=== PATIENT | female | born 1985 | race Caucasian/White ===

== ENCOUNTER → 2018-02-08 08:40 | Outpatient (CLI) | payer OTHER, SELFPAY ==
[2018-02-08 09:43] LABS: Hematocrit 42.6 % (37-47); Hemoglobin 13.7 g/dl (12.0-15.0); Mean Corp Hgb Conc 32.2 g/gl (32-36); Mean Corpuscular Hgb 29.7 pg (27.0-32.0); Mean Corpuscular Volume 92.4 fL (81-99); Mean Platelet Vol. 10.4 fl (6.2-12.0); Platelet Count 302 K/mm3 (150-450); RBC Distribution Width SD 43.2 fl (35.1-43.9); Red Blood Count 4.61 M/mm3 (4.2-5.4); White Blood Count 6.7 K/mm3 (4.4-11.0)
[2018-02-08 09:47] LABS: Scan Indicated on CBC? Y/N NO
== END ==
PROVIDERS: Visit Provider Obstetrics & Gynecology
DX: K62.5 Hemorrhage of anus and rectum (principal)
CPT/HCPCS: 36415; 82274; 85027

== ENCOUNTER → 2018-05-23 10:11 | Outpatient (CLI) | payer OTHER, SELFPAY ==
[2016-05-16 13:12] VITALS: BMI 26.3
[2018-05-23 12:13] LABS: Absolute Lymphocyte Count 2.05 X10^3/ul (0.83-4.51); Absolute Neutrophil Count 3.2 X10^3/uL (2.0-7.7); Basophil# 0.05 X10^3/uL; Basophil% 0.8 % (0-1); Eosinophil# 0.06 X10^3/uL; Hematocrit 42.1 % (37-47); Hemoglobin 13.6 g/dl (12.0-15.0); Lymphocyte # 2.05 X10^3/ul (4.0); Lymphocyte % 34.8 % (19-41); Mean Corp Hgb Conc 32.3 g/gl (32-36); Mean Corpuscular Hgb 29.6 pg (27.0-32.0); Mean Corpuscular Volume 91.5 fL (81-99); Mean Platelet Vol. 10.2 fl (6.2-12.0); Monocyte# 0.49 X10^3/uL; Monocyte% 8.3 % (0-10); Neutrophil # 3.23 X10^3/uL (2.7-7.7); Neutrophil % 54.9 % (47-70); Platelet Count 326 K/mm3 (150-450); RBC Distribution Width CV 13.2 % (11.6-14.6); RBC Distribution Width SD 43.5 fl (35.1-43.9); White Blood Count 5.9 K/mm3 (4.4-11.0)
[2018-05-23 12:21] LABS: POSITIVE COUNT NO; POSITIVE DIFFERENTIAL NO; POSITIVE MORPHOLOGY NO
[2018-05-23 12:39] LABS: Progesterone Level 15.72 ng/mL (See Comment); Vitamin B12 842 pg/mL (211-911); Vitamin D,25 Hydroxy 34.7 ng/mL (29.95-100.01)
[2018-05-23 14:06] LABS: ALB/GLOB Ratio 1.2 RATIO (0.9-2.4); AST(SGOT) 14 U/L (15-37); Alanine Aminotransfer ALT/SGPT 18 U/L (13-56); Albumin, Serum 4.1 g/dL (3.2-5.0); Alkaline Phosphatase 60 U/L (45-117); Anion Gap 11 (5-15); BUN 10 mg/dL (7-18); BUN/Creat Ratio 13.8 RATIO (10-20); Calcium,Total 8.8 mg/dL (8.5-10.1); Chloride 106 mmol/L (98-107); Creatinine, Serum 0.72 mg/dL (0.55-1.02); EST Glomerular Filtration Rate 99 mL/min (>60); Est Glom Filt Rate - Afr Amer 119 mL/min (>60); Estradiol 117.2 pg/mL; Ferritin 33 ng/mL (8-252); Globulin 3.5 g/dL (2.2-4.2); Glucose 80 mg/dL (74-106); Magnesium 1.9 mg/dL (1.6-2.6); Potassium 3.7 mmol/L (3.5-5.1); Prolactin 6.9 ng/mL; Protein, Total 7.6 g/dL (6.4-8.2); Sodium Level 141 mmol/L (136-145); T4 Free Direct 1.08 ng/dL (0.76-1.46); Thyroid Stim Hormone (TSH) 1.05 uIU/mL (0.358-3.74)
[2018-05-23 16:35] LABS: Bilirubin, Direct 0.37 mg/dL (0.00-0.30); Follicle Stimulating Hormone 7.1 mIU/mL; GGTP 11 U/L (5-55); Luteinizing Hormone 7.9 mIU/mL
[2018-05-25 11:55] LABS: Adrenocorticotropic Hormone 6.8 pg/mL (7.2-63.3); Copper, Serum or Plasma 124 ug/dL (72-166); Zinc, Plasma or Serum 103 ug/dL (56-134)
--- OUTSIDE RECORDS SUMMARY | 2018-07-16 15:07 | XMS RPT_ITS ---
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 Jacinto Finn Active Juan disorder, Community unspecified / Hospital E34.9(ICD-10) Repository PROCEDURES PROCEDURES No Procedure Records FoundRESULTS RESULTS CBC W/DIFF, AUTOMATED Collected: 05/23/2018 Status: F Source: [place] 10:16 AM [facility] REPOSITORY TYPE CODE TESTS RESULT OUT OF RANGE REFERENCE UNITS LAB L100.1000 4.4-11.0 K/mm3 Normal WBC 5.9 LAB L100.1200 4.2-5.4 M/mm3 Normal RBC 4.60 LAB L100.1300 12.0-15.0 g/dl Normal HGB 13.6 LAB L100.1400 37-47 % Normal HCT 42.1 LAB L100.1500 81-99 fL Normal MCV 91.5 LAB L100.1600 27.0-32.0 pg Normal MCH 29.6 LAB L100.1700 32-36 g/gl Normal MCHC 32.3 LAB L100.1810 11.6-14.6 % Normal RDW CV 13.2 LAB L100.1820 35.1-43.9 fl Normal RDW SD 43.5 LAB L100.1900 150-450 K/mm3 Normal PLT 326 LAB L100.2000 6.2-12.0 fl Normal MPV 10.2 LAB L100.2100 47-70 % Normal NEUT% 54.9 LAB L100.2200 19-41 % Normal LY% 34.8 LAB L100.2300 0-10 % Normal MONO% 8.3 LAB L100.2400 0-5 % Normal EO% 1.0 LAB L100.2500 0-1 % Normal BASO% 0.8 LAB L100.2550 0.0-0.9 % Normal IM GRAN % 0.200 Result Comment: IG% - Immature Granulocytes (promyelocytes, myelocytes and metamyelocytes) > 1% indicates that a LEFT SHIFT is Present. LAB L100.2620 2.0-7.7 X10 3/uL Normal Absolute Neut 3.2 LAB L100.2720 0.83-4.51 X10 3/ul Normal Absolute Lymph 2.05 Performed By: #### L100.0100 #### [facility] [address] [place], [address] VITAMIN B12 Collected: 05/23/2018 Status: F Source: [place] 10:16 AM [facility] REPOSITORY Order Comment: BASELINE OR POST MEDICATION STIMULATION?: Baseline Comments: MANGANESE [id number] ROYAL/WB/ORIGINAL TUBE TYPE CODE TESTS RESULT OUT OF RANGE REFERENCE UNITS LAB L503.0105 211-911 pg/mL Normal Vitamin B12 842 Performed By: #### L503.0105, L506.1000, L509.3000, L509.4001, L509.6000 #### [facility] [address] [place], [address] VITAMIN D,25 HYDROXY Collected: 05/23/2018 Status: F Source: [place] 10:16 AM [facility] REPOSITORY Order Comment: BASELINE OR POST MEDICATION STIMULATION?: Baseline Comments: MANGANESE [id number] ROYAL/WB/ORIGINAL TUBE TYPE CODE TESTS RESULT OUT OF RANGE REFERENCE UNITS LAB L506.1000 29.95-100.01 ng/mL Normal Vitamin D 34.7 25-OH Result Comment: Vitamin D 25(OH) Status Range Deficiency <20 ng/mL (50nmol/L) Insuffciency 20 - 30 ng/mL (50 - 75 nmol/L) Sufficiency 30 - 100 ng/mL (75 - 250 nmol/L) Toxicity >100 ng/mL (>250 nmol/L) Performed By: #### L503.0105, L506.1000, L509.3000, L509.4001, L509.6000 #### [facility] [address] [place], [address] TESTOSTERONE, SERUM TOTAL Collected: 05/23/2018 Status: F Source: [place] 10:16 AM [facility] REPOSITORY Order Comment: BASELINE OR POST MEDICATION STIMULATION?: Baseline Comments: LUIS [id number] ROYAL/WB/ORIGINAL TUBE TYPE CODE TESTS RESULT OUT OF REFERENCE UNITS RANGE LAB L509.3000 ng/dL Testosterone Normal 12.83 Result Comment: NORMAL REFERENCE RANGES MALE AGE <50 123.06 - 813.86 ng/dL MALE AGE >50 89.98 - 780.10 ng/dL FEMALE PREMENOPAUSE AGE 21 - 60 9.01 - 47.94 ng/dL FEMALE POSTMENOPAUSE AGE 45 - 89 <7.00 - 45.62 ng/dL REFERENCE RANGE AND METHODOLOGY CHANGED 06/09/2017 Performed By: #### L503.0105, L506.1000, L509.3000, L509.4001, L509.6000 #### [facility] [address] [place], [address] PROGESTERONE LEVEL Collected: 05/23/2018 Status: F Source: [place] 10:16 AM [facility] REPOSITORY Order Comment: BASELINE OR POST MEDICATION STIMULATION?: Baseline Comments: LUIS [id number] ROYAL/WB/ORIGINAL TUBE TYPE CODE TESTS RESULT OUT OF REFERENCE UNITS RANGE LAB L509.4001 See Comment ng/mL Progesterone Normal 15.72 Result Comment: Progesterone Reference Table: UNITS Female: Follicular 0.15 - 1.40 ng/mL Luteal 3.34 - 25.56 ng/mL Mid-luteal 4.44 - 28.03 ng/mL Postmenopausal 0.0 - 0.73 ng/mL : 1st Trimester 11.22 - 90.00 ng/mL 2nd Trimester 25.55 - 89.40 ng/mL 3rd Trimester 48.40 -422.50 ng/mL Performed By: #### L503.0105, L506.1000, L509.3000, L509.4001, L509.6000 #### [facility] [address] [place], [place], [address] CORTISOL SERUM Collected: 05/23/2018 Status: F Source: [place] 10:16 AM [facility] REPOSITORY Order Comment: BASELINE OR POST MEDICATION STIMULATION?: Baseline Comments: MANGANESE [id number] ROYAL/WB/ORIGINAL TUBE TYPE CODE TESTS RESULT OUT OF RANGE REFERENCE UNITS LAB L509.6000 3.09-22.40 ug/dL Normal CORTISOL 8.20 Result Comment: Adult (AM) 4.30 - 22.40 ug/dL Adult (PM) 3.09 - 16.66 ug/dL Performed By: #### L503.0105, L506.1000, L509.3000, L509.4001, L509.6000 #### [facility] [address] [place], [place], [id number] COMPREHENSIVE METABOLIC Collected: 05/23/2018 Status: F [facility] REPOSITORY Order Comment: Has Patient had X-rays with Contrast this admission? N Comments: MANGANESE [id number] ROYAL/WB/ORIGINAL TUBE TYPE CODE TESTS RESULT OUT OF RANGE REFERENCE UNITS LAB L501.0100 74-106 mg/dL Normal GLU 80 Result Comment: Please note revised GLUCOSE reference range effective 2017. LAB L501.1000 7-18 mg/dL Normal BUN 10 LAB L501.1100 0.55-1.02 mg/dL Normal CREAT,SERUM 0.72 Result Comment: The validity of the calculated GFR AND GFRAA in patients over 70 years has not been determined. Clinical correlation is essential. LAB L501.1110 >60 mL/min Normal EST GFR 99 Result Comment: Non- GFR Calc LAB L501.1115 >60 mL/min Normal EST GFR - AA 119 Result Comment: GFR Calc LAB L501.1300 10-20 RATIO Normal BUN/CRE 13.8 LAB L501.1500 6.4-8.2 g/dL T Normal PROT 7.6 LAB L501.1800 3.2-5.0 g/dL Normal ALB 4.1 LAB L501.1950 2.2-4.2 g/dL Normal GLOB 3.5 LAB L501.2000 0.9-2.4 RATIO Normal A/G 1.2 LAB L501.2200 8.5-10.1 mg/dL CA Normal 8.8 LAB L501.4100 15-37 U/L Low AST 14 LAB L501.4305 45-117 U/L Normal ALK P 60 LAB L501.4405 13-56 U/L Normal ALT 18 LAB L501.4600 0.20-1.00 mg/dL High T BILI 1.80 LAB L501.5300 136-145 mmol/L NA Normal 141 LAB L501.5600 3.5-5.1 mmol/L K Normal 3.7 LAB L501.5900 98-107 mmol/L CL Normal 106 LAB L501.6100 21.0-32.0 mmol/L Normal CO2 24.0 LAB L501.6200 5-15 Normal GAP 11 Performed By: #### L500.4050, L501.5200, L501.9520, L503.6550, L506.0400, L3100.5420, L3300.1750, L501.4700, L501.5100, L3100.5125, L3100.5170 #### [facility] [address] [place], [address] MAGNESIUM Collected: 05/23/2018 Status: F Source: [place] 10:16 AM [facility] REPOSITORY Order Comment: Has Patient had X-rays with Contrast this admission? N Comments: MANGANESE [id number] ROYAL/WB/ORIGINAL TUBE TYPE CODE TESTS RESULT OUT OF RANGE REFERENCE UNITS LAB L501.5200 1.6-2.6 mg/dL Normal MG 1.9 Performed By: #### L500.4050, L501.5200, L501.9520, L503.6550, L506.0400, L3100.5420, L3300.1750, L501.4700, L501.5100, L3100.5125, L3100.5170 #### [facility] [address], [place], [id number] THYROID STIM HORMONE Collected: 05/23/2018 Status: F Source: [place] (TSH) 10:16 AM [facility] REPOSITORY Order Comment: Has Patient had X-rays with Contrast this admission? N Comments: MANGANESE [id number] ROYAL/WB/ORIGINAL TUBE TYPE CODE TESTS RESULT OUT OF RANGE REFERENCE UNITS LAB L501.9520 0.358-3.74 uIU/mL Normal TSH 1.05 Performed By: #### L500.4050, L501.5200, L501.9520, L503.6550, L506.0400, L3100.5420, L3300.1750, L501.4700, L501.5100, L3100.5125, L3100.5170 #### [facility] [address] [place], [place], [id number] FERRITIN Collected: 05/23/2018 Status: F Source: [place] 10:16 AM [facility] REPOSITORY Order Comment: Has Patient had X-rays with Contrast this admission? N Comments: MANGANESE [id number] ROYAL/WB/ORIGINAL TUBE TYPE CODE TESTS RESULT OUT OF RANGE REFERENCE UNITS LAB L503.6550 8-252 ng/mL Normal FERRITIN 33 Performed By: #### L500.4050, L501.5200, L501.9520, L503.6550, L506.0400, L3100.5420, L3300.1750, L501.4700, L501.5100, L3100.5125, L3100.5170 #### [facility] [address] [place], [place], [address] T4 FREE DIRECT Collected: 05/23/2018 Status: F Source: [place] 10:16 AM [facility] REPOSITORY Order Comment: Has Patient had X-rays with Contrast this admission? N Comments: MANGANESE [id number] ROYAL/WB/ORIGINAL TUBE TYPE CODE TESTS RESULT OUT OF RANGE REFERENCE UNITS LAB L506.0400 0.76-1.46 ng/dL Normal T4 FREE 1.08 DIRECT Performed By: #### L500.4050, L501.5200, L501.9520, L503.6550, L506.0400, L3100.5420, L3300.1750, L501.4700, L501.5100, L3100.5125, L3100.5170 #### [facility] [address] [place], [place], [address] PROLACTIN Collected: 05/23/2018 Status: F Source: [place] 10:16 AM [facility] REPOSITORY Order Comment: Has Patient had X-rays with Contrast this admission? N Comments: LUIS [id number] ROYAL/WB/ORIGINAL TUBE TYPE CODE TESTS RESULT OUT OF RANGE REFERENCE UNITS LAB L3100.5420 ng/mL Normal PROLACTIN 6.9 Result Comment: NORMAL REFERENCE RANGES FEMALE NON- 2.2 - 30.3 ng/mL 8.1 - 347.6 ng/mL POST-MENOPAUSAL 0.7 - 31.5 ng/mL MALE 2.5 - 17.4 ng/mL NEW TEST METHOD AND REFERENCE RANGES NOVEMBER 09, 2011 Performed By: #### L500.4050, L501.5200, L501.9520, L503.6550, L506.0400, L3100.5420, L3300.1750, L501.4700, L501.5100, L3100.5125, L3100.5170 #### [facility] [address] [place], [place], [address] ESTRADIOL Collected: 05/23/2018 Status: F Source: [place] 10:16 AM [facility] REPOSITORY Order Comment: Has Patient had X-rays with Contrast this admission? N Comments: LUIS [id number] ROYAL/WB/ORIGINAL TUBE TYPE CODE TESTS RESULT OUT OF RANGE REFERENCE UNITS LAB L3300.1750 pg/mL Normal ESTRADIOL 117.2 Result Comment: NORMAL REFERENCE RANGES FEMALE FOLLICULAR 21.4 - 164.8 pg/mL MID-CYCLE PEAK 49.9 - 367.2 pg/mL LUTEAL 40.2 - 259.0 pg/mL POST-MENOPAUSAL ON MHT <11.0 - 462.1 pg/mL NOT ON MHT <11.0 - 58.3 pg/mL MALE <11.0 - 52.5 pg/mL NOTE: [facility] HAS CONFIRMED THE DRUG FULVETRANT (FASLODEX) MAY CAUSE FALSELY ELEVATED ESTRADIOL RESULTS WHEN USING THIS TEST METHOD. IF PATIENT IS TAKING FULVESTRANT AN ALTERNATIVE METHOD SHOULD BE USED TO DETERMINE ESTRADIOL CONCENTRATION. Performed By: #### L500.4050, L501.5200, L501.9520, L503.6550, L506.0400, L3100.5420, L3300.1750, L501.4700, L501.5100, L3100.5125, L3100.5170 #### [facility] [address] [place], [place], [id number] BILIRUBIN, DIRECT Collected: 05/23/2018 Status: F Source: [place] 10:16 AM [facility] REPOSITORY Order Comment: Has Patient had X-rays with Contrast this admission? N Comments: MANGANESE [id number] ROYAL/WB/ORIGINAL TUBE TYPE CODE TESTS RESULT OUT OF RANGE REFERENCE UNITS LAB L501.4700 0.00-0.30 mg/dL High D BILI 0.37 Performed By: #### L500.4050, L501.5200, L501.9520, L503.6550, L506.0400, L3100.5420, L3300.1750, L501.4700, L501.5100, L3100.5125, L3100.5170 #### [facility] [address] [place], [place], [id number] GGTP Collected: 05/23/2018 Status: F Source: [place] 10:16 AM [facility] REPOSITORY Order Comment: Has Patient had X-rays with Contrast this admission? N Comments: MANGANESE [id number] ROYAL/WB/ORIGINAL TUBE TYPE CODE TESTS RESULT OUT OF RANGE REFERENCE UNITS LAB L501.5100 5-55 U/L Normal GGTP 11 Performed By: #### L500.4050, L501.5200, L501.9520, L503.6550, L506.0400, L3100.5420, L3300.1750, L501.4700, L501.5100, L3100.5125, L3100.5170 #### [facility] [address] [place], [place], [id number] FOLLICLE STIMULATING Collected: 05/23/2018 Status: F Source: [place] HORMONE 10:16 AM [facility] REPOSITORY Order Comment: Has Patient had X-rays with Contrast this admission? N Comments: LUIS [id number] ROYAL/WB/ORIGINAL TUBE TYPE CODE TESTS RESULT OUT OF RANGE REFERENCE UNITS LAB L3100.5125 mIU/mL Normal FSH 7.1 Result Comment: NORMAL REFERENCE RANGES FEMALE FOLLICULAR 2.3 - 12.6 mIU/mL MID-CYCLE PEAK 5.2 - 17.5 mIU/mL LUTEAL 1.7 - 12.9 mIU/mL POST-MENOPAUSAL ON MHT 5.9 - 72.8 mIU/mL NOT ON MHT 12.7 - 132.2 mlU/mL MALE 0.7 - 10.8 mIU/mL NEW TEST METHOD AND REFERENCE RANGES NOVEMBER 09, 2011 Performed By: #### L500.4050, L501.5200, L501.9520, L503.6550, L506.0400, L3100.5420, L3300.1750, L501.4700, L501.5100, L3100.5125, L3100.5170 #### [facility] [place], [address] LUTEINIZING HORMONE Collected: 05/23/2018 Status: F Source: [place] 10:16 AM [facility] REPOSITORY Order Comment: Has Patient had X-rays with Contrast this admission? N Comments: LUIS [id number] ROYAL/WB/ORIGINAL TUBE TYPE CODE TESTS RESULT OUT OF RANGE REFERENCE UNITS LAB L3100.5170 mIU/mL Normal LH 7.9 Result Comment: NORMAL REFERENCE RANGES FEMALE FOLLICULAR 1.9 - 26.2 mIU/mL MID-CYCLE PEAK 22.8 - 76.1 mIU/mL LUTEAL 0.6 - 16.6 mIU/mL POST-MENOPAUSAL ON MHT 1.1 - 52.4 mIU/mL NOT ON MHT 8.6 - 61.8 mIU/mL MALE 1.2 - 10.6 mIU/mL NEW TEST METHOD AND REFERENCE RANGES NOVEMBER 09, 2011 Performed By: #### L500.4050, L501.5200, L501.9520, L503.6550, L506.0400, L3100.5420, L3300.1750, L501.4700, L501.5100, L3100.5125, L3100.5170 #### [facility] [place], [address] COPPER, SERUM OR Collected: 05/23/2018 Status: F Source: [place] PLASMA 10:16 AM [facility] REPOSITORY Order Comment: Has Patient had X-rays with Contrast this admission? N Comments: MANGANESE [id number] ROYAL/WB/ORIGINAL TUBE TYPE CODE TESTS RESULT OUT OF RANGE REFERENCE UNITS LAB L3300.0100 72-166 ug/dL Normal COPPER 124 Result Comment: Detection Limit = 5 Performed By: #### L3300.0100, L3300.1000, L3300.9900 #### [facility] (refer to report for specific site) refer to report for address and phone number ADRENOCORTICOTROPIC HORMONE Collected: Status: F Source: [place] 05/23/2018 10:16 AM [facility] REPOSITORY Order Comment: Has Patient had X-rays with Contrast this admission? N Comments: MANGANESE [id number] ROYAL/WB/ORIGINAL TUBE TYPE CODE TESTS RESULT OUT OF RANGE REFERENCE UNITS LAB L3300.1000 7.2-63.3 pg/mL Low ACTH 4440 6.8 Result Comment: ACTH reference interval for samples collected between 7 and 10 AM. Performed By: #### L3300.0100, L3300.1000, L3300.9900 #### [facility] (refer to report for specific site) refer to report for address and phone number ZINC, PLASMA OR Collected: 05/23/2018 Status: F Source: [place] SERUM 10:16 AM [facility] REPOSITORY Order Comment: Has Patient had X-rays with Contrast this admission? N Comments: MANGANESE [id number] ROYAL/WB/ORIGINAL TUBE TYPE CODE TESTS RESULT OUT OF RANGE REFERENCE UNITS LAB L3300.9900 56-134 ug/dL Normal ZINC 103 Plasma/Ser Result Comment: Detection Limit = 5 Performed at: [facility] [id number] Velvet Weaver: Pascual Kerr PhD, Phone: [phone] Performed at: [facility] [id number] Velvet Weaver: Marti Giles MD, Phone: [phone] Performed By: #### L3300.0100, L3300.1000, L3300.9900 #### [facility] (refer to report for specific site) refer to report for address and phone number MISCELLANEOUS LAB Collected: 05/23/2018 Status: F Source: [place] PROCEDURE 10:16 AM [facility] REPOSITORY Order Comment: Comments: MANGANESE [id number] ROYAL/WB/ORIGINAL TUBE Test(s) Ordered: MANGANESE [id number] ROYAL/WB/ORIGINAL TUBE TYPE CODE TESTS RESULT OUT OF RANGE REFERENCE UNITS LAB L801.1541 Normal [facility] [place] Result Comment: TEST RESULT LIMITS Manganese, Blood 9.2 ug/L 8.0 - 18.7 TESTING PERFORMED AT [facility]. ORIGINAL REPORT ON FILE IN LAB CONTAINS ADDITIONAL TEST SITE INFORMATION. Performed By: #### L801.1541 #### [facility] [address] [place], [address] CBC-COMPLETE BLOOD CNT Collected: 02/08/2018 Status: F Source: [place] NO DIFF 8:50 AM [facility] REPOSITORY TYPE CODE TESTS RESULT OUT OF RANGE REFERENCE UNITS LAB L100.1000 4.4-11.0 K/mm3 Normal WBC 6.7 LAB L100.1200 4.2-5.4 M/mm3 Normal RBC 4.61 LAB L100.1300 12.0-15.0 g/dl Normal HGB 13.7 LAB L100.1400 37-47 % Normal HCT 42.6 LAB L100.1500 81-99 fL Normal MCV 92.4 LAB L100.1600 27.0-32.0 pg Normal MCH 29.7 LAB L100.1700 32-36 g/gl Normal MCHC 32.2 LAB L100.1810 11.6-14.6 % Normal RDW CV 13.0 LAB L100.1820 35.1-43.9 fl Normal RDW SD 43.2 LAB L100.1900 150-450 K/mm3 Normal PLT 302 LAB L100.2000 6.2-12.0 fl Normal MPV 10.4 Performed By: #### L100.0500 #### [facility] [address] [place], [address] Observed: 02/08/2018 Status: F Source: [place] STOOL OCCULT BLOOD 8:45 AM [facility] IFOB REPOSITORY STOB iFOB Normal Reference Range = Negative Occult Blood Negative Performed By: #### M100.7900 #### [facility] [address] [place], [address] URGENT CARE VISIT Observed: 06/24/2017 Status: F Source: [place] REPORT 5:22 PM [facility] REPOSITORY [facility] [address] [place] [address] [address] [place], [place] [address] OFFICE VISIT Date of Service: 06/24/17 MR#: [id number] Acct: [id number] Name: ARSH CELESTIN Rep #: [id number] : 1985 Provider: Beck LOUIE Age/Sex: 31 Location: [facility] [place] Status: Signed with Addenda ADDENDUM by Beck LOUIE on 06/24/17 at 1722 Addendum entered and electronically signed by LIBAN Alejandre 06/24/17 17:22: [facility] ED informed to anticipate pt reporting there this evening for further evaluation. 06/24/17 1722 <Electronically signed by Beck LOUIE> Date Beck Coronado cc: * Signed ADDENDUM by Beck LOUIE on 06/24/17 at 1717 Addendum entered and electronically signed by LIBAN Alejandre 06/24/17 17:17: Follow up w/ patient at home, spoke with - who stating pt had improved slightly after taking meclizine dose x1 and was currently slepping. Spouse clarified patient's history, stating she did have an emesis episode this morning before reporting to the [facility]. As a result, I recommended to spouse that pt report to ED for further evaluation at this time. Spouse agreed, stating he and patient will comply with this recommendation. 06/24/17 1377 <Electronically signed by Beck LOUIE> Date Beck Coronado cc: * Signed Intake Vital Signs06/24/17 Height 5 ft 4 in 06/24/17 Blood Pressure 100/56 06/24/17 Blood Pressure Location Rt brachial 06/24/17 Blood Pressure Position Sitting 06/24/17 Respiratory Rate 12 Intake Visit Reasons: EARACHE/NAUSEA Envelope Sealer Required: No Accompanied by: Is patient in pain?: No Allergies No Known Allergies Allergy (Verified 05/16/16 13:20) Medications Docusate Sodium [Colace] 100 mg PO BID PRN PRN #60 cap 05/16/16 [Rx] Naproxen [Naprosyn] 500 mg PO BID PRN #30 tab 05/16/16 [Rx] Vits [Prenatabs FA ] 1 tab PO DAILY 05/16/16 [History Confirmed 05/16/16] cholecalciferol (vitamin D3) 2,000 unit capsule 2,000 unit PO QDAY cap 06/24/17 [History Confirmed 06/24/17] meclizine 25 mg tablet 25 mg PO BID PRN #14 tab 06/24/17 [Rx Confirmed 06/24/17] [facility] Medical History 39 weeks gestation of (Acute) Normal spontaneous vaginal delivery (Acute) Social History Smoking Status: Never smoker HPI EARACHE/NAUSEA: Chief Complaint: left ear ache, dizziness Details: ARSH CELESTIN, is a 31 F who presents to the office today for initial evaluation left ear pain and dizziness. Patient notes above symptoms beginning yesterday morning with symptoms progressively worsening since then. Patient and state the symptoms are comparable to when she was diagnosed with vertigo approximately 7 years ago (with symptoms resolving then after corticosteroid prescription). Today patient notes dizziness is exacerbated with head rotation and abrupt position changes. She notes her left earache pain began abruptly at the same time the dizziness began yesterday, though noting no complaints of fever, chills, sweats. Additionally patient notes no complaints of nausea, vomiting, headache, stiff neck, or bowel or bladder function changes. No other associated symptoms and no other alleviating or aggravating factors were expressed upon questioning. ROS Const Constitutional: No chills, fever(s), body ache, frequent falls, headache(s) or change in appetite Eyes Eyes: No change in vision ENT ENT: Positive for ear pain (Left ear); no abnormal hearing, ear discharge, ear pressure, hearing loss, post nasal drip, sinus pressure or headache(s) Resp Respiratory: No cough or chest congestion Cardio Cardiology: No chest pain at rest or shortness of breath Gastro GI: No abdominal pain, change in stool character, change in bowel habits, belching, bloating, constipation, diarrhea or cramping Musc Musculoskeletal: No joint pain, back pain or limited range of motion Skin Skin: No change in hair or sores Neuro Neurology: Positive for dizziness; no abnormal hearing, abnormal speech, abnormal movements, behavioral changes, frequent falls, headache(s) or loss of vision Psych Psychiatric: No behavioral changes, No anxiety, No depression, No change in appetite Endo Endocrine: No change in body appearance, cold intolerance or heat intolerance Aller/Imm Allergy/Immunologic: No food intolerance Corwin/Lymp Hematologic/Lymphatic: No easy bruising Exam Const General: cooperative, uncomfortable, well groomed Nutritional Appearance: average body habitus Orientation: alert, awake, oriented x3 HENMT Head: normal to inspection Ears: hearing grossly normal bilaterally, external ears normal, TM's normal bilaterally (w/ trace bulging L TM w/o erythema or fluid appreciated), EAC's normal Nose: external nose normal, nares normal, septum normal, no nasal discharge Eyes General: appearance normal, both eyes and all related structures Alignment and Position: alignment normal, position normal Periorbital: periorbital findings normal Eyelids: eyelids normal Conjunctivae: conjunctivae normal Pupils: PERRL, normal by confrontation, accommodation normal EOM: EOM intact bilaterally, EOM abnormal Direct ophthalmoscopy: normal light reflex Neck Neck: normal visual inspection, no lymphadenopathy, no meningeal signs (, though pt guarded w/ cervical ROM d/t exacerbating dizziness), supple, trachea midline Neck mass: No Thyroid: thyroid normal Lymphatic: no lymphadenopathy noted Chest Chest palpation AND inspection: normal inspection of the chest Resp Effort AND Inspection: normal respiratory effort, able to speak in complete sentences Auscultation: Bilateral: Clear to Auscultation Cardio Palpation: normal PMI Rate: regular rate Rhythm: regular rhythm Heart Sounds: S1 normal, S2 normal, no gallops, no murmurs, no rubs Pulses: radial pulses present GI Inspection: normal to inspection Palpation: soft Musc Cervical Spine: normal cervical lordosis and cervical ROM normal (though guard ROM d/t exacerbating dizziness) Skin General: no rashes or lesions noted Neuro General: alert, awake, oriented x3, tone normal, moves all extremities (, though spouse wheel chair assisted pt d/t dizziness) Cognition: normal cognition Speech: speech normal Gait: normal gait Motor: muscle tone normal throughout Sensory Exam: no sensory deficits noted Extrem General: normal to inspection Psych Appearance: grossly normal Mental Status: mental status grossly normal Mood: congruent mood Affect: normal affect Speech and Movement: speech and movement normal Attitude: cooperative Thought Process: normal Thought Content: normal Judgment: judgment good Assessment AND Plan Problems 1. Vertigo R42 Plan Meclizine As Prescribed today. Patient and spouse both informed if no improvement in symptoms after 12 hours she should report to the emergency room for further evaluation, or should report to the emergency room sooner should symptoms worsen or other concerns develop. Patient and spouse state acknowledging understanding the above. Medications New: Coding Level of Care Code Off vis,new,level 3 Diagnoses Vertigo R42 06/24/17 1132 <Electronically signed by Beck LOUIE> Date Beck LOUIE Cosigner Signature: Date (if applicable) CC: ALLERGIES ALLERGIES DATE TYPE / CODE NAME / CODE REACTION SEVERITY SOURCE 05/16/2016 Drug No Known Unknown [facility] Allergy/4160 Allergies/F00 Hospital 23041(SNOMED [id number](RXNOR Repository CT) M) ENCOUNTERS ENCOUNTERS ADMIT/DISCHARGE ACCOUNT ADMITTING ENCOUNTER LOCATION SOURCE NUMBER CLASS 05/23/2018 [id number] Ambulatory [place] Juan 9 [facility] ing:MTLAB Repository 02/08/2018 [id number] Ambulatory [place] Juan 2 [facility] ing:WOBLAB Repository 06/24/2017/ [id number] Ambulatory BMSBuilding:B [place] 8 7 [facility] [place] Repository PAYERS PAYERS ENCOUNTER GUARANTOR PAYER SUBSCRIBER SOURCE 05/23/2018 ARSH ALDANA DEANDOB: [place] [id number] Insurance[id number] Repository [address]Sra: 330 [id number] [phone] () Date:[id number] [place] [id number]: 05/23/2018 Secondary NOT GIVENUNK [place] Insurance:SELF PAY [facility] Number: Effective Repository Date:2018-05-23 02/08/2018 ARSH Aldana DeanDOB: [place] [id number] Insurance[id number] Number: Repository [address]Lqp: 330 [id number] [phone] () Date:[id number] [address]PF: 02/08/2018 Secondary NOT GIVENUNK [place] Insurance:SELF PAY [facility] Number: Effective Repository Date:2018-02-08 06/24/2017 ARSH Aldana DeanDOB: [place] [id number] Insurance[place]MEDICAL [id number] Number: Repository [id number]: 330 [id number] [phone] () Date:[id number], [place] [address]AV: 06/24/2017 Secondary NOT GIVENUNK [place] Insurance:SELF PAY [facility] Number: Effective Repository Date:2017-06-24
== END ==
PROVIDERS: Family Provider Family Medicine; PCP Family Medicine; Referring Provider Family Medicine; Visit Provider Family Medicine
DX: E34.9 Endocrine disorder, unspecified (principal); R23.2 Flushing; R53.83 Other fatigue; L65.9 Nonscarring hair loss, unspecified; F09 Unspecified mental disorder due to known physiological condition; H81.09 Meniere's disease, unspecified ear; E63.9 Nutritional deficiency, unspecified; R17 Unspecified jaundice
CPT/HCPCS: 36415; 80053; 82024; 82248; 82306; 82525; 82533; 82607; 82670; 82728; 82977; 83001; 83002; 83735; 84144; 84146; 84403; 84439; 84443; 84630; 85025

== ENCOUNTER → 2018-08-03 17:48 | Outpatient (CLI) | payer OTHER, SELFPAY ==
--- NOTE | 2018-08-03 17:59 | MRI_ITS ---
STUDY: MRI BRAIN WITH AND WITHOUT CONTRAST REASON FOR EXAM: Female, 33 years old. Hearing loss TECHNIQUE: Standardized multiplanar fat and water weighted pulse sequences were obtained. Gadavist 6 IV was administered for the contrast portion of the examination. COMPARISON: None. FINDINGS: Normal size of the ventricles and extra-axial spaces for the patient's age. Normal white matter tracts of the supratentorial brain. Normal bilateral basal ganglia. Normal thalami. There is no extra-axial fluid accumulation. Normal flow voids within the major intracranial circulation suggesting patency by spin echo criteria. Normal venous enhancement. There is no enhancing intra-axial or extra-axial abnormality. Normal sella turcica, pituitary gland, infundibular stalk, optic chiasm and hypothalamus. Normal tectal plate and pineal gland. Normal midbrain, jane and medulla. Normal cerebellum. Normal basal cisterns. Normal bilateral temporal bones. Normal bilateral internal auditory canals. No demonstrated orbital abnormality, within the constraints of a routine brain study. Normal visualized paranasal sinuses. Normal calvarium and skull base. Normal visualized soft tissue structures. Normal visualized upper cervical spine. MRI/Brain W/WO Contrast IMPRESSION: Normal unenhanced and enhanced MRI of the brain. Electronically Signed: Norberto Davis MD at 4:56 EST , Service support ,
== END ==
PROVIDERS: Family Provider Family Medicine; PCP Family Medicine; Referring Provider Family Medicine; Visit Provider Family Medicine
DX: H91.92 Unspecified hearing loss, left ear (principal); H93.12 Tinnitus, left ear; R53.83 Other fatigue; R25.3 Fasciculation; R42 Dizziness and giddiness
CPT/HCPCS: 70553; A9585

== ENCOUNTER → 2019-04-28 07:44 | Outpatient (CLI) | payer OTHER, SELFPAY ==
[2019-03-15 10:53] VITALS: BMI 26.3
[2019-04-28 08:10] LABS: Absolute Lymphocyte Count 2.43 X10^3/uL (0.83-4.51); Absolute Neutrophil Count 3.5 X10^3/uL (2.0-7.7); Basophil# 0.05 X10^3/uL; Basophil% 0.8 % (0-1); Eosinophils% 1.6 % (0-5); Hematocrit 42.2 % (37-47); Hemoglobin 13.4 g/dL (12.0-15.0); Lymphocyte # 2.43 X10^3/ul (4.0); Lymphocyte % 37.7 % (19-41); Mean Corp Hgb Conc 31.8 g/dL (32-36); Mean Corpuscular Hgb 29.5 pg (27.0-32.0); Mean Corpuscular Volume 92.7 fL (81-99); Mean Platelet Vol. 9.8 fl (6.2-12.0); Monocyte# 0.41 X10^3/uL; Monocyte% 6.4 % (0-10); NRBC Flagged by Analyzer 0 % (0-5); Neutrophil # 3.45 X10^3/uL (2.7-7.7); Neutrophil % 53.3 % (47-70); Platelet Count 293 K/mm3 (150-450); RBC Distribution Width SD 44.1 fl (35.1-43.9); Red Blood Count 4.55 M/mm3 (4.2-5.4); White Blood Count 6.5 K/mm3 (4.4-11.0)
[2019-04-28 09:06] LABS: Ferritin 27 ng/mL (8-252); Iron Binding Capacity,Total 305 ug/dL (250-450); Prolactin 18.4 ng/mL; T4 Free Direct 1.06 ng/dL (0.76-1.46); Thyroid Stim Hormone (TSH) 0.79 uIU/mL (0.358-3.74)
[2019-05-01 17:58] LABS: Adrenocorticotropic Hormone 18.1 pg/mL (7.2-63.3); Transferrin 232 mg/dL (200-370)
== END ==
PROVIDERS: Family Provider Family Medicine; PCP Family Medicine; Referring Provider Obstetrics & Gynecology; Visit Provider Obstetrics & Gynecology
DX: N64.3 Galactorrhea not associated with childbirth (principal); R53.83 Other fatigue
CPT/HCPCS: 36415; 82024; 82533; 82728; 83550; 84146; 84439; 84443; 84466; 85025

== ENCOUNTER → 2019-05-23 14:03 | Outpatient (CLI) | payer OTHER, SELFPAY ==
[2019-05-23 09:38] VITALS: BMI 26.3
[2019-05-25 11:54] LABS: HPV APTIMA, High Risk Negative (Negative)
== END ==
PROVIDERS: Family Provider Family Medicine; PCP Family Medicine; Visit Provider Nurse Practitioner Women's Health
DX: Z12.4 Encounter for screening for malignant neoplasm of cervix (principal)
CPT/HCPCS: 87624; 88175; G0145

== ENCOUNTER → 2019-07-05 14:15 | Outpatient (CLI) | payer OTHER, SELFPAY ==
[2019-05-23 09:38] VITALS: BMI 26.3
[2019-07-05 17:12] LABS: Chlamydia Trachomatis by PCR Negative (Negative); Neisserai gonorrhoeae by PCR Negative (Negative); Probe Check PASS; Sample Adequacy Control PASS; Specimen Processing Control PASS
== END ==
PROVIDERS: Family Provider Family Medicine; PCP Family Medicine; Referring Provider Advanced Practice Midwife; Visit Provider Advanced Practice Midwife
DX: Z11.3 Encounter for screening for infections with a predominantly sexual mode of transmission (principal)
CPT/HCPCS: 87491; 87591

== ENCOUNTER → 2019-07-11 17:51 | Outpatient (CLI) | payer OTHER, SELFPAY ==
[2019-07-11 15:46] VITALS: BMI 26.3
[2019-07-11 20:05] LABS: Chlamydia Trachomatis by PCR Negative (Negative); Neisserai gonorrhoeae by PCR Negative (Negative); Probe Check PASS; Sample Adequacy Control PASS; Specimen Processing Control PASS
== END ==
PROVIDERS: PCP Family Medicine; Visit Provider Obstetrics & Gynecology
DX: Z34.90 Encounter for supervision of normal pregnancy, unspecified, unspecified trimester (principal)
CPT/HCPCS: 87077; 87086; 87088; 87186; 87491; 87591

== ENCOUNTER → 2019-07-12 16:48 | Outpatient (CLI) | payer OTHER, SELFPAY ==
[2019-07-12 14:22] VITALS: BMI 26.3
[2019-07-12 22:43] LABS: Chlamydia Trachomatis by PCR Negative (Negative); Neisserai gonorrhoeae by PCR Negative (Negative); Probe Check PASS; Sample Adequacy Control PASS; Specimen Processing Control PASS
== END ==
PROVIDERS: PCP Family Medicine; Referring Provider Obstetrics & Gynecology; Visit Provider Obstetrics & Gynecology
DX: Z34.90 Encounter for supervision of normal pregnancy, unspecified, unspecified trimester (principal)
CPT/HCPCS: 87491; 87591

== ENCOUNTER → 2019-08-11 09:33 | Outpatient (CLI) | payer OTHER, SELFPAY ==
[2019-07-12 14:22] VITALS: BMI 26.3
[2019-08-11 09:54] LABS: Absolute Lymphocyte Count 1.83 X10^3/uL (0.83-4.51); Absolute Neutrophil Count 6.6 X10^3/uL (2.0-7.7); Basophil# 0.02 X10^3/uL; Basophil% 0.2 % (0-1); Eosinophils% 2.2 % (0-5); Hematocrit 38.1 % (37-47); Hemoglobin 12.2 g/dL (12.0-15.0); Lymphocyte # 1.83 X10^3/ul (4.0); Lymphocyte % 19.8 % (19-41); Mean Corpuscular Hgb 29.5 pg (27.0-32.0); Mean Platelet Vol. 9.9 fl (6.2-12.0); Monocyte# 0.54 X10^3/uL; Monocyte% 5.9 % (0-10); NRBC Flagged by Analyzer 0 % (0-5); Neutrophil % 71.5 % (47-70); POSITIVE MORPHOLOGY YES; Platelet Count 273 K/mm3 (150-450); RBC Distribution Width CV 14.2 % (11.6-14.6); Red Blood Count 4.14 M/mm3 (4.2-5.4); White Blood Count 9.2 K/mm3 (4.4-11.0)
[2019-08-11 09:59] LABS: Differential Indicated SCAN CRITERIA MET
[2019-08-11 11:20] LABS: HIV - WCH Non-Reactive (Nonreactive); Hepatitis B Surface Antigen Non-Reactive (Nonreactive); Hepatitis C Antibody Non-Reactive (Nonreactive); Rubella IgG 77.2 IU/mL
[2019-08-17 01:04] LABS: Rapid Plasmin Reagin (RPR) NONREACTIVE (NONREACTIVE)
== END ==
PROVIDERS: PCP Family Medicine; Referring Provider Obstetrics & Gynecology; Visit Provider Obstetrics & Gynecology
DX: O23.40 Unspecified infection of urinary tract in pregnancy, unspecified trimester (principal); Z3A.00 Weeks of gestation of pregnancy not specified
CPT/HCPCS: 36415; 85025; 86592; 86703; 86762; 86803; 86850; 86900; 86901; 87086; 87340

== ENCOUNTER → 2019-10-03 10:04 | Outpatient (CLI) | payer OTHER, SELFPAY ==
[2019-10-03 09:35] VITALS: BMI 23.6
[2019-10-03 10:26] LABS: Absolute Lymphocyte Count 2.31 X10^3/uL (0.83-4.51); Absolute Neutrophil Count 7.8 X10^3/uL (2.0-7.7); Basophil# 0.04 X10^3/uL; Basophil% 0.4 % (0-1); Eosinophil# 0.08 X10^3/uL; Eosinophils% 0.7 % (0-5); Hematocrit 35.7 % (37-47); Hemoglobin 11.4 g/dL (12.0-15.0); Lymphocyte # 2.31 X10^3/ul (4.0); Lymphocyte % 20.9 % (19-41); Mean Corp Hgb Conc 31.9 g/dL (32-36); Mean Corpuscular Hgb 30.2 pg (27.0-32.0); Mean Corpuscular Volume 94.4 fL (81-99); Mean Platelet Vol. 9.9 fl (6.2-12.0); Monocyte# 0.72 X10^3/uL; Monocyte% 6.5 % (0-10); NRBC Flagged by Analyzer 0 % (0-5); Neutrophil # 7.83 X10^3/uL (2.7-7.7); Platelet Count 253 K/mm3 (150-450); RBC Distribution Width CV 14.5 % (11.6-14.6); RBC Distribution Width SD 50.2 fl (35.1-43.9); Red Blood Count 3.78 M/mm3 (4.2-5.4)
== END ==
PROVIDERS: PCP Family Medicine; Referring Provider Nurse Practitioner Women's Health; Visit Provider Nurse Practitioner Women's Health
DX: Z34.82 Encounter for supervision of other normal pregnancy, second trimester (principal)
CPT/HCPCS: 36415; 85025

== ENCOUNTER → 2019-11-03 09:57 | Outpatient (CLI) | payer OTHER, SELFPAY ==
[2019-10-03 09:35] VITALS: BMI 23.6
[2019-11-03 11:28] LABS: Glucose Challenge Gest 1H 50g 99 mg/dL (70-140)
== END ==
PROVIDERS: PCP Family Medicine; Referring Provider Nurse Practitioner Women's Health; Visit Provider Nurse Practitioner Women's Health
DX: Z34.82 Encounter for supervision of other normal pregnancy, second trimester (principal)
CPT/HCPCS: 36415; 82950

== ENCOUNTER → 2019-12-01 10:37 | Outpatient (CLI) | payer OTHER, SELFPAY ==
[2019-12-01 10:12] VITALS: BMI 26.3
[2019-12-01 10:53] LABS: Absolute Lymphocyte Count 1.76 X10^3/uL (0.83-4.51); Absolute Neutrophil Count 5.8 X10^3/uL (2.0-7.7); Basophil# 0.03 X10^3/uL; Basophil% 0.4 % (0-1); Eosinophil# 0.07 X10^3/uL; Eosinophils% 0.9 % (0-5); Hematocrit 37.7 % (37-47); Hemoglobin 11.9 g/dL (12.0-15.0); Lymphocyte # 1.76 X10^3/ul (4.0); Lymphocyte % 21.4 % (19-41); Mean Corp Hgb Conc 31.6 g/dL (32-36); Mean Corpuscular Hgb 30.9 pg (27.0-32.0); Mean Corpuscular Volume 97.9 fL (81-99); Mean Platelet Vol. 9.9 fl (6.2-12.0); Monocyte# 0.54 X10^3/uL; Monocyte% 6.6 % (0-10); NRBC Flagged by Analyzer 0 % (0-5); Neutrophil # 5.75 X10^3/uL (2.7-7.7); Platelet Count 191 K/mm3 (150-450); RBC Distribution Width CV 14.5 % (11.6-14.6); RBC Distribution Width SD 52.1 fl (35.1-43.9); Red Blood Count 3.85 M/mm3 (4.2-5.4); White Blood Count 8.2 K/mm3 (4.4-11.0)
== END ==
PROVIDERS: PCP Family Medicine; Referring Provider Obstetrics & Gynecology; Visit Provider Obstetrics & Gynecology
DX: Z34.80 Encounter for supervision of other normal pregnancy, unspecified trimester (principal)
CPT/HCPCS: 36415; 85025

== ENCOUNTER → 2020-01-12 | Outpatient (CLI) | payer OTHER, SELFPAY ==
[2020-01-12 10:05] VITALS: BMI 26.3
== END | disposition home or self-care (01) ==
PROVIDERS: PCP Family Medicine; Referring Provider Obstetrics & Gynecology; Visit Provider Obstetrics & Gynecology
DX: O23.40 Unspecified infection of urinary tract in pregnancy, unspecified trimester (principal); Z3A.00 Weeks of gestation of pregnancy not specified
CPT/HCPCS: 87077; 87081; 87086; 87088; 87186

== ENCOUNTER 2020-01-28 12:20 | Inpatient (IN) | payer OTHER, SELFPAY ==
[2020-01-26 09:47] VITALS: BMI 26.3
[2020-01-28] VITALS (31 sets, daily range): BP systolic 95–131; BP diastolic 52–72; PULSE 60–103; TEMP 36.3–37.1; O2SAT 92–100; BMI 25.9
[2020-01-28] MEDS: Lactated Ringers 1,000 ML 50 ML IV (12:50)
[2020-01-28 13:12] LABS: Absolute Lymphocyte Count 1.54 X10^3/uL (0.83-4.51); Absolute Neutrophil Count 8.9 X10^3/uL (2.0-7.7); Basophil# 0.02 X10^3/uL; Basophil% 0.2 % (0-1); Eosinophil# 0.05 X10^3/uL; Eosinophils% 0.4 % (0-5); Hematocrit 38.1 % (37-47); Hemoglobin 12.3 g/dL (12.0-15.0); Lymphocyte # 1.54 X10^3/ul (4.0); Lymphocyte % 13.5 % (19-41); Mean Corp Hgb Conc 32.3 g/dL (32-36); Mean Corpuscular Hgb 30.1 pg (27.0-32.0); Mean Corpuscular Volume 93.4 fL (81-99); Mean Platelet Vol. 10.4 fl (6.2-12.0); Monocyte# 0.83 X10^3/uL; Monocyte% 7.3 % (0-10); NRBC Flagged by Analyzer 0 % (0-5); Neutrophil # 8.87 X10^3/uL (2.7-7.7); Neutrophil % 78.1 % (47-70); Platelet Count 160 K/mm3 (150-450); RBC Distribution Width CV 14.6 % (11.6-14.6); Red Blood Count 4.08 M/mm3 (4.2-5.4); White Blood Count 11.4 K/mm3 (4.4-11.0)
[2020-01-28] MEDS: Lactated Ringers 500 ML 999 ML IV (14:20)
[2020-01-28] MEDS: fentaNYL-bupivacaine (epidural) 100 ML BAG EPIDURAL (15:04)
--- NOTE | 2020-01-28 15:06 | PCM.HP.OB ---
- Problem List (1) Active labor at term Status: Acute (2) GBS (group B streptococcus) UTI complicating Status: Acute Comment: plan PCN in labor. treated macrobid. (3) UTI in Status: Acute Qualifiers: Trimester: first trimester Qualified Code(s): O23.41 - Unspecified infection of urinary tract in , first trimester Comment: s/p treatment. repeat culture negative. (4) Grand multipara Status: Acute (5) History of hemorrhage Status: Acute Comment: patient anxious about previous delivery, discussed and reassurance given. has not received blood products in past. (6) Status: Acute Qualifiers: Weeks of gestation: 34 weeks Qualified Code(s): Z3A.34 - 34 weeks gestation of Comment: declines genetic, carrier, and NTD screening. Anatomy normal (7) Supervision of normal Status: Acute Qualifiers: Normal : other normal Trimester: second trimester Qualified Code(s): Z34.82 - Encounter for supervision of other normal , second trimester Comment: PRR FRIDA 02/06/20 girl PC Angela Wallace Jamie, Max Annie Kehinde History Date of Admission: 01/28/20 History of this : This is a 34 year-old, G 6P5 at 38 weeks gestational age presented in active labor 3 cm dilated with regular contractions. She has a history of fast labors and is GBS positive. She has a history of hemorrhage but otherwise has had an uncomplicated .. Medical History: Medical History (Last Reviewed 01/26/20 @ 09:47 by Salome Gibson) Anxiety F41.9 Allergies No Known Allergies Allergy (Verified 01/26/20 09:46) Home Medications: Home Medications docosahexaenoic acid 200 mg capsule mg PO cap 05/23/19 cholecalciferol (vitamin D3) 50 mcg (2,000 unit) tablet 2,000 unit PO DAILY 07/11/19 lactobacillus combination no.8 3 billion cell capsule 3,000 mmu cells PO DAILY 07/11/19 magnesium sulfate (laxative) 495 mg/5 gram oral granules 1 applic TOPICAL DAILY 07/11/19 comp.stocking,thigh,long,small See Rx Instructions .ROUTE .MEDSUPPLY #12 ea 10/03/19 valacyclovir 1 gram tablet 1,000 mg PO BID 3 Days #6 tab 12/18/19 Dha Algal-900 01/28/20 Vit No.130/Iron/Folic [ Tablet] 01/28/20 Smoking Status: Never smoker Alcohol: None Number of Fetus(es): 1 NST - FHR Rate Baby A Baseline: 130 Variability:: Moderate Accelerations:: 15 x 15 Decelerations:: None NST Reactive:: Yes FHR Category:: Category I Uterine Activity:: q 3-4 History Past Pregnancies: Past Pregnancies Pregancy History 6 Elective abortions Hx Para 5 Spontaneous abortions Hx # Term Pregnancies Ectopic pregnancies Hx # Pregnancies Multiple births # of living children Past Pregnancies Del. Date Name GA/Weeks Outcome Route Bth Weight Infant Gen Labor Lgth Anesthesia Del [facility] Provider FOB Unknown 09/20/2007 [place] 38 live - full term 7lbs 2oz Female none [place] Unknown 08/29/2009 Angela 40 live - full term 8lbs Male none [place], [place] Unknown 03/03/2012 Kedar 39 live - full term 8lbs Female none [place], [place] Unknown 10/28/2013 Max 39 live - full term 8lbs Male none [place] Unknown 05/16/2016 Keena 39 live - full term Female 4 hours none [facility] Delivery Date: No notes to display Delivery Date: No notes to display Delivery Date: On 07/11/19 @ 14:24 Mary Rodriguez precuptious delivery Delivery Date: No notes to display Delivery Date: On 07/11/19 @ 14:27 Mary Rodriguez post hemorrhage- no PRBC given Labs: Mom's Labs & Results 01/28/20 01/28/20 12:55 12:55 WBC 11.4 H RBC 4.08 L Hgb 12.3 Hct 38.1 MCV 93.4 MCH 30.1 MCHC 32.3 RDW Std Deviation 50.0 H RDW Coeff of Ivonne 14.6 Plt Count 160 MPV 10.4 Immature Gran % (Auto) 0.500 Neut % (Auto) 78.1 H Lymph % (Auto) 13.5 L [place] % (Auto) 7.3 Eos % (Auto) 0.4 Baso % (Auto) 0.2 Absolute Neuts (auto) 8.9 H Absolute Lymphs (auto) 1.54 Nucleated RBC % 0 Blood Type O POSITIVE Antibody Screen NEGATIVE Course Did the patient receive Yes care? Labs Blood Type: O RH: POSITIVE RPR/VDRL/Syphilis Nonreactive Rubella status Immune HbSAg Negative Date Done: 08/11/19 Chlamydia Negative Gonorrhea Negative HIV/AIDS Non-Reactive Group B Strep: Positive Current Obstetrical History Gestational Diabetes No Incompetent Cervix No Infertility No IUGR No Macrosomia No Hypertension/Pre-eclampsia No Placenta Previa/Abruption No PTL/PROM No Uterine anomaly No Oligohydramnios No Polyhydramnios No Multiple gestation No Past Medical History Neurologic/Seizure disorder/ Yes: migrains Migraines Varicosities Yes Clotting disorders/Hx of DVT No Thyroid Dysfunction No Other medical diseases No Psychiatric disorders No Major trauma No Abnormal PAP smear No Sleep apnea No Mammogram in the last 2 years No Social History Marital Status: Alleged father Kehinde Castro Hx Smoking No Smoking Status Never smoker Expected Infant Delivery Method: Spontaneous Vaginal Describe any other labor & delivery plans:: Labor Preferences-. labor support person: kehinde. pain management options preferred: minimal intervention, okay with touch, involvement. HLIV. intermittent auscultation, tub room. cut cord/dad catch: yes. : yes. PP control planned: NFP. discussed possible routes of delivery and associated risks: discussed no questions. special requests: minimal intervention, calm, peaceful. Specific Issue/Plans. flu vaccine: given. tdap vaccine: given. rhogam: na. LARC form signed: declined Review of Systems Constitutional: Denies: Fever, Malaise Eyes: Denies: Blurred vision, Vision Change HEENT: Denies: Head Aches, Visual Changes Cardiovascular: Denies: Chest Pain, Palpitations Respiratory: Denies: Cough, Shortness of Breath, Wheezing Gastrointestinal: Denies: Abdominal Pain, Diarrhea, Nausea, Vomiting Genitourinary: Denies: Dysuria, Hematuria Musculoskeletal: Denies: Joint Pain, Muscle pain Skin: Denies: Lesions, Rash Neurological: Denies: Blurred vision, Focal weakness, Headaches Psychiatric: Denies: Anxiety, Depression Endocrine: Denies: Heat/ Cold Intolerance Hematologic/ Lymphatic: Denies: Easy Bruising, Easy Bleeding Physical Exam Vitals: Vital Signs Pulse BP Pulse Ox 84 131/68 H 99 01/28/20 15:03 01/28/20 15:00 01/28/20 15:03 General: Alert, Cooperative, No apparent distress HEENT: Atraumatic, Normocephalic. Negative for: Thyromegaly, Lymphadenopathy Cardiovascular: Regular rate Lungs: Normal air movement Abdomen: Soft, Non Tender, Gravid Neurological: Deep Tendon Reflexes 2+/4 and Symmetrical, Neuro grossly intact. Negative for: Clonus [employer] MANAGER: Normal external genitalia. Negative for: Vulvar lesions Estimated gestational size: Appropriate for gestational size Presentation: Cephalic Cervix Dilation (cm): 3 Station: -1 Effacement (%): 70 Assessment/Plan All Active Problems (Last Reviewed 01/26/20 @ 09:47 by Salome Gibson) Active labor at term (Acute) GBS (group B streptococcus) UTI complicating (Acute) UTI in (Acute) Grand multipara (Acute) History of hemorrhage (Acute) (Acute) Supervision of normal (Acute) 39 weeks gestation of (Resolved) BPPV (benign paroxysmal positional vertigo) (Resolved) Fatigue (Resolved) Galactorrhea (Resolved) Normal spontaneous vaginal delivery (Resolved) Pre-conception counseling (Resolved) Vertigo (Resolved) This is a 34 year-old, at 38 weeks gestational age presents IAL Patient presents IAL, plan expectant management for , Pitocin/AROM if needed. Pain management: Plans epidural. GBS positive plan IV PCN. Management of any complications: None I have reviewed the [facility] and made any clinically relevant updates.
[2020-01-28] MEDS: Oxytocin 30 units/NS 500 ml 30 UNITS/500 ML IV.SOLN 334 UNITS IV (18:41)
--- NOTE | 2020-01-28 18:50 | PCM.OPRPT ---
Problem List (1) Active labor at term Status: Acute (2) GBS (group B streptococcus) UTI complicating Status: Acute Comment: plan PCN in labor. treated macrobid. (3) UTI in Status: Acute Qualifiers: Trimester: first trimester Qualified Code(s): O23.41 - Unspecified infection of urinary tract in , first trimester Comment: s/p treatment. repeat culture negative. (4) Grand multipara Status: Acute (5) History of hemorrhage Status: Acute Comment: patient anxious about previous delivery, discussed and reassurance given. has not received blood products in past. (6) Status: Acute Qualifiers: Weeks of gestation: 34 weeks Qualified Code(s): Z3A.34 - 34 weeks gestation of Comment: declines genetic, carrier, and NTD screening. Anatomy normal (7) Supervision of normal Status: Acute Qualifiers: Normal : other normal Trimester: second trimester Qualified Code(s): Z34.82 - Encounter for supervision of other normal , second trimester Comment: PRR FRIDA 02/06/20 girl Angela Ruiz Jamie, Max Annie Kehinde Vaginal Delivery Maternal Presentation: Active Labor 34-year-old G6, P5 at 38 weeks presents in active labor Amniotic Membrane Rupture Type: Spontaneous Amniotic Fluid Description: Clear Final FRIDA: 02/06/20 Gestational age: 38 Weeks and 5 Days Date of Procedure: 01/28/20 Pre-Operative Diagnosis: Active labor Post-Operative Diagnosis: Same Surgery/ Procedure Performed: Spontaneous Vaginal Delivery Type of Anesthesia: Epidural Description of Procedure: Patient began pushing and delivered the head in the CINDY presentation. The head was delivered atraumatically and a loose nuchal cord ?1 was identified and easily reduced over the 's head. The anterior and posterior shoulders delivered without complication followed by the rest of the and the infant was placed on the maternal abdomen. Delayed cord clamping was employed for approximately 60 seconds. Cord was clamped and cut and gentle traction was applied to the cord and the placenta delivered spontaneously immediately following it was noted to be intact with three-vessel cord. The perineum and vagina were inspected and noted to have no laceration. EBL was 100 cc. Patient and infant tolerated delivery well. Presentation: CINDY Placental Delivery Description: Spontaneous Placenta Disposition: [facility] Cord Vessel Description: 3 Vessels Cord Entanglement: Around neck x 1, loose Estimated Blood Loss: 100 A gender: Female (1 minute): 8 (5 minute): 9 Episiotomy Description: None Laceration: None Medications given after delivery: IV Pitocin - Given immediately after delivery of the shoulder Complications: None Multi Select Codes - Urinary/Genital Urinary/Genital CPT Codes: 91314 Vaginal Delivery [facility]
[2020-01-29 00:15] VITALS: BP 106/64; PULSE 71; RESP 18; TEMP 36.3; O2SAT 97
[2020-01-29 03:55] VITALS: BP 98/59; PULSE 69; RESP 18; TEMP 36.4; O2SAT 97
--- NOTE | 2020-01-29 06:38 | PCM.PN.OB ---
Patient Problems: Active and Suspected Problems (Last Reviewed 01/26/20 @ 09:47 by Salome Gibson) Active labor at term (Acute) Subjective: doing well no complaints pain controlled no CP SOB N V ambulating well tolerating po lochia moderate, going well - Physical Exam Vitals/I&O's: Vital Signs Temp Pulse Resp BP Pulse Ox 97.5 F L 69 18 98/59 L 97 01/29/20 03:55 01/29/20 03:55 01/29/20 03:55 01/29/20 03:55 01/29/20 03:55 Oxygen Delivery Method Room Air Weight: 151 lb 0.266 oz Body Mass Index (BMI) 25.9 Intake and Output for Last 24 Hours 01/27/20 01/28/20 01/29/20 23:59 23:59 23:59 Intake Total 1447.5 / 1447.5 Output Total 900 / 900 1000 / 1000 Balance 547.5 / 547.5 -1000 / -1000 General: Alert, Oriented x3 Laboratory Results 01/28/20 12:55: WBC 11.4 H, RBC 4.08 L, Hgb 12.3, Hct 38.1, MCV 93.4, MCH 30.1, MCHC 32.3, RDW Std Deviation 50.0 H, RDW Coeff of Ivonne 14.6, Plt Count 160, MPV 10.4, Immature Gran % (Auto) 0.500, Neut % (Auto) 78.1 H, Lymph % (Auto) 13.5 L, [place] % (Auto) 7.3, Eos % (Auto) 0.4, Baso % (Auto) 0.2, Absolute Neuts (auto) 8.9 H, Absolute Lymphs (auto) 1.54, Nucleated RBC % 0 01/28/20 12:55: Blood Type O POSITIVE, Antibody Screen NEGATIVE Current Medications Acetaminophen (Tylenol) 1,000 mg PO Q8H PRN PRN PRN Reason: Pain Score 1-3/10 Bisacodyl (Dulcolax) 10 mg RECTAL UD PRN PRN Reason: If no BM Dibucaine (Dibucaine) 1 applic TOPICAL TID PRN PRN; Protocol PRN Reason: Discomfort Hydrocortisone (Hytone) 1 applic TOPICAL TID PRN PRN; Protocol PRN Reason: Discomfort Methylergonovine Maleate (Methergine) 0.2 mg IM X1 PRN PRN Reason: Excess bleeding/uterine atony Naproxen (Naprosyn) 500 mg PO Q8H PRN PRN PRN Reason: Pain Score 1-3/10 Ondansetron HCl (Zofran) 4 mg IV Q4H PRN PRN PRN Reason: Nausea Oxycodone HCl (Oxyir) 5 - 10 mg PO Q4H PRN PRN PRN Reason: Pain Score 4-10/10 Senna/Docusate Sodium (Senokot-S, Sonja-Colace) 1 - 2 tablet PO DAILY PRN PRN PRN Reason: Constipation Simethicone (Mylicon) 80 mg PO PCHS PRN PRN Reason: Indigestion/Stomach pain Sodium Chloride () 5 - 15 ml IV UD PRN PRN Reason: SALINE FLUSH Medical Necessity - Tobacco Use Smoking Status: Never smoker Assessment/Plan All Active Problems (Last Reviewed 01/26/20 @ 09:47 by Salome Gibson) Active labor at term (Acute) GBS (group B streptococcus) UTI complicating (Acute) UTI in (Acute) Grand multipara (Acute) History of hemorrhage (Acute) (Acute) Supervision of normal (Acute) 39 weeks gestation of (Resolved) BPPV (benign paroxysmal positional vertigo) (Resolved) Fatigue (Resolved) Galactorrhea (Resolved) Normal spontaneous vaginal delivery (Resolved) Pre-conception counseling (Resolved) Vertigo (Resolved) s/p PPD # 1 1. routine post delivery care 2. breast feeding- support given 3. rh positive 4. rubella immune
--- NOTE | 2020-01-29 06:39 | DCINST_ITS ---
Discharge Diet: No Restrictions Discharge Activity: Return to Normal Activity, May not drive while taking narcotic pain medications., May Shower May resume sexual activity in: 4-6 weeks Call your doctor if your incision/area has: Continuous Slow Oozing, Sudden Increased Bleeding, Increased Pain/ Swelling, Increased Redness, Foul Smelling Discharge Additional Instructions: If you experience any of the following, contact your healthcare provider. * Bleeding that soaks a pad every hour for 2 hours * Fever 100.4 or higher * Unrelieved incision or abdominal pain * Swelling, redness, discharge or bleeding from your incision or episiotomy site * Your incision begins to separate * Problems urinating (including inability to urinate or burning while urinating). * Visual changes * Severe headache * Flu-like symptoms * Pain or redness in one of both of your breasts * Pain, warmth, tenderness or swelling in your legs, especially the calf area * Frequent nausea and vomiting * Symptoms of depression or anxiety If you experience any of the following, call 911 or go to the nearest Emergency Room. * Chest pain * Problems breathing * Seizure activity * Partial or complete paralysis of a body part, slurred speech, weakness or drooping of the face, or a sudden inability to walk or hold your balance Allergies/Adverse Reactions: Allergies No Known Allergies Allergy (Verified 01/26/20 09:46) Medications to take at Discharge docosahexaenoic acid 200 mg capsule mg PO cap 05/23/19 cholecalciferol (vitamin D3) 50 mcg (2,000 unit) tablet 2,000 unit PO DAILY 07/11/19 lactobacillus combination no.8 3 billion cell capsule 3,000 mmu cells PO DAILY 07/11/19 magnesium sulfate (laxative) 495 mg/5 gram oral granules 1 applic TOPICAL DAILY 07/11/19 comp.stocking,thigh,long,small See Rx Instructions .ROUTE .MEDSUPPLY #12 ea 10/03/19 valacyclovir 1 gram tablet 1,000 mg PO BID 3 Days #6 tab 12/18/19 Dha Algal-900 01/28/20 Vit No.130/Iron/Folic [ Tablet] 01/28/20 Please Follow Up With: Sherrill Doll MD - [phone] When: Call to make an appointment with your doctor in 6 weeks. If you had elevated Blood pressure or 4th degree laceration you will need to be seen in 2 weeks. Primary Care Physician: Jacinto Finn DO [Primary Care Provider] - Test Results: Test results from this visit will be discussed in further detail at your follow- up appointment, if applicable.
[2020-01-29 08:00] VITALS: BP 109/64; PULSE 80; RESP 16; TEMP 36.5; O2SAT 96
[2020-01-29 13:00] VITALS: BP 118/67; PULSE 60; RESP 16; TEMP 36.3
[2020-01-29 16:40] VITALS: BP 119/70; PULSE 81; RESP 16; TEMP 36.7
[2020-01-29] MEDS: Naproxen 250 MG Tablet 500 MG PO (16:53)
[2020-01-29 20:06] VITALS: BP 110/72; PULSE 64; RESP 16; TEMP 36.1
== END 2020-01-29 20:30 | disposition home or self-care (01) | DRG 806 ==
LOC: WPOUT 12:26 → WP 12:26
PROVIDERS: Admitting Provider Obstetrics & Gynecology; PCP Family Medicine; Visit Provider Obstetrics & Gynecology
DX: O42.92 Full-term premature rupture of membranes, unspecified as to length of time between rupture and onset of labor (principal); O23.41 Unspecified infection of urinary tract in pregnancy, first trimester; B95.1 Streptococcus, group B, as the cause of diseases classified elsewhere; Z37.0 Single live birth; O69.81X0 Labor and delivery complicated by cord around neck, without compression, not applicable or unspecified; O99.824 Streptococcus B carrier state complicating childbirth; Z3A.38 38 weeks gestation of pregnancy; Z87.59 Personal history of other complications of pregnancy, childbirth and the puerperium
CPT/HCPCS: 59025; 59050; 85025; 86850; 86900; 86901; 99218; J7120; G0378

== ENCOUNTER 2020-10-10 10:26 | Outpatient (RCR) | payer OTHER, SELFPAY ==
[2020-05-28 16:28] VITALS: BMI 22.7
== END 2020-11-26 23:59 ==
LOC: IMMUN 10:26
PROVIDERS: PCP Family Medicine; Referring Provider Family Medicine; Visit Provider Family Medicine
DX: Z23 Encounter for immunization (principal)
CPT/HCPCS: 0001A; 0002A; 91300

== ENCOUNTER → 2021-03-07 08:56 | Outpatient (CLI) | payer OTHER, SELFPAY ==
[2020-05-28 16:28] VITALS: BMI 22.7
--- NOTE | 2021-03-07 08:58 | BI_ITS ---
MAMMOGRAPHY - BILATERAL DIAGNOSTIC REASON FOR EXAM: Female, 35 years old. History of prior bilateral mastoiditis. PERTINENT HISTORY: Non-contributory. TECHNIQUE: Digital bilateral breast nancy (3D mammographic acquisition) in the CC and MLO projections. 2-D mediolateral oblique (MLO) and craniocaudad (CC) views of both breasts were obtained. CAD: Full Field Digital Mammography with Computer Added Detection was performed. COMPARISON: None. Baseline examination. FINDINGS: Breast Composition: The breasts are extremely dense, which lowers the sensitivity of mammography. There are no dominant masses or suspicious calcifications. No other significant abnormalities are identified. BI/DIAG MAMM W/CAD, BILAT IMPRESSION: Negative diagnostic mammogram. Yearly followup mammogram recommended. (A) ASSESSMENT CATEGORY: BIRADS Category 1: Negative. A letter regarding these results will be sent to the patient by the facility within 30 days. Approximately 10% of breast cancers are not detected by mammography. A normal mammogram should not delay biopsy of a clinically suspicious abnormality. Electronically Signed: Jose Gonzalez MD at 10:16 EDT , Service support ,
== END ==
PROVIDERS: PCP Family Medicine; Referring Provider Obstetrics & Gynecology; Visit Provider Obstetrics & Gynecology
DX: N63.20 Unspecified lump in the left breast, unspecified quadrant (principal); N61.0 Mastitis without abscess
CPT/HCPCS: 77062; 77066; G0279